=== PATIENT | female | born 1940 | race Caucasian/White ===

== ENCOUNTER 2016-07-21 16:45 | Inpatient (IN) | payer OTHER ==
--- NOTE | 2016-07-21 17:15 | ED EKG INTERP ---
EKG Interpretation - EKG Time of EKG reading by physician:: 16:55 EKG Read and Signed by:: Carrington Fleming EKG Interpretation (*Must complete 3 of following elements*): Normal Rate: 89 Rhythm: normal sinus rhythm Comments: normal ECG Attestation - Scribe Verification/Attestation Scribe:: Ivory Donato Acting as Scribe for:: Carrington Fleming Scribe documention review:: This chart was documented by a scribe and accurately reflects the service the provider performed and the decisions made by the provider.
[2016-07-21] MEDS ORDERED: MORPHINE IV ONE (17:24)
--- NOTE | 2016-07-21 17:55 | PROVIDER DOCUMENTATION ---
HPI-Abdominal Pain/GI Problem - General Chief Complaint: Back Pain Stated Complaint: High BP Time Seen by Provider: 07/21/16 16:59 Source: patient, family Allergies/Adverse Reactions: Patient Allergies Allergy/AdvReac Type Severity Reaction Status Date / Time Iodine and Iodide Containing Allergy Intermediate RASH Verified 07/21/16 17:21 Produc ondansetron HCl * Allergy Intermediate RASH Verified 07/21/16 17:21 [From Zofran (as hydrochloride)] shellfish derived Allergy Intermediate RASH Verified 07/21/16 17:21 levofloxacin [From Levaquin] AdvReac Unknown Verified 07/21/16 17:21 Home Medications: Celecoxib [Celebrex] 200 mg PO DAILY 10/09/14 Levothyroxine [Synthroid] 100 mg PO DAILY 10/09/14 Loratadine [Claritin] 10 mg PO DAILY 10/09/14 RX: Acetaminophen 325 mg PO DAILY 10/09/14 RX: Hydrochlorothiazide 12.5 mg PO DAILY 10/09/14 RX: Lisinopril 10 mg PO DAILY 10/09/14 RX: Metformin [Glucophage] 500 mg PO DAILY 10/09/14 RX: Simvastatin 80 mg PO DAILY 10/09/14 Spironolactone [Aldactone] 25 mg PO DAILY 10/09/14 - History of Present Illness-ABD Nature of Presenting Problems: 75 year old obese female presents with c/o left lower back pain and right flank pain. pt reports she has not been feeling well for several days with URI s/s. pt reports she went to the [facility], stood up then walked around around developed severe low back pain and right flank pain. pt reports she was able to walk downstairs and call the ambulance. pt reports she has developed swelling to bilateral lower extremities over the last few days with weakness, fatigue. Review of Systems - Adult - REVIEW OF SYSTEMS - ADULT Constitutional: reports: see HPI, fatique. denies: chills, fever Eyes: reports: no symptoms reported. denies: discharge, blurred vision, double vision Ears, Nose, Mouth & Throat: reports: see HPI, other (nasal congestion). denies : ear discharge, ear pain, sinus problem, nose pain, loose teeth, throat pain, throat swelling Cardiovascular: reports: no symptoms reported. denies: chest pain, palpitations , syncope Respiratory: reports: no symptoms reported. denies: chronic cough, cough, shortness of breath, wheezing Gastrointestinal: reports: no symptoms reported. denies: abdominal pain, diarrhea, nausea, vomiting Genitourinary: reports: see HPI, flank pain (right). denies: dysuria, discharge , frequency, frequent UTI's, hematuria, hesitency, urgency Musculoskeletal: reports: no symptoms reported. denies: bone pain, joint pain, joint swelling, neck pain Integumentary: reports: no symptoms reported. denies: hives, itching, rash, skin thickening Neurological: reports: no symptoms reported. denies: ataxia, dizziness/vertigo , numbness, paresthesia, tremors Psychiatric: reports: no symptoms reported Endocrine: reports: no symptoms reported Hematologic/Lymphatic: reports: no symptoms reported Allergic/Immunologic: reports: no symptoms reported All Other Systems: Reviewed and Negative Past History - Adult - PAST MEDICAL HISTORY-ADULT Review of Records: reports: Old Records Reviewed, Nursing Assessment Review, Medications Reviewed, Social history reviewed & non-contributory. Major Childhood Illnesses: reports: denies history Cardiovascular: reports: HTN Respiratory: reports: denies history Gastrointestinal: reports: denies history Obstetrical/Gynecological: reports: denies history Genitourinary: reports: denies history Musculoskeletal: reports: arthritis Neurological: reports: denies history Psychiatric: reports: denies history Endocrine/Immune: reports: Diabetes, thyroid disorder Other Conditions: reports: denies history - PRIOR SURGERIES/PROCEDURES Surgical/Procedure History: reports: none - IMMUNIZATION STATUS Childhood Immunizations: See Nurse Assessment Flu Vaccine: See Nurse Assessment - FAMILY HISTORY Family History: reviewed, not pertinent - SOCIAL HISTORY Smoking: denies Substance Use: none/never Alcohol Use Frequency: never Physical Exam-General - PHYSICAL EXAM-ADULT Initial Vital Signs Reviewed: Yes - CONSTITUTIONAL General Appearance: appears well, alert, no apparent distress, obese. negative : mild distress, moderate distress, severe distress, lethargic, slow to respond , obtunded, combative - EYES Eyes: PERRL/EOMI, pink conjunctivae. negative: conjuctival exudate, pale conjunctivae, sclera injected, scleral icterus, subconjunctival hemorrhage - HEAD, EARS, NOSE, MOUTH & THROAT HENMT: normocephalic/atraumatic, moist mucous membranes, normal ENT inspection - NECK Neck: non-tender, full range of motion, supple, normal inspection. negative: limited range of motion, tender lateral, tender midline - RESPIRATORY Respiratory: chest non-tender, lungs clear, normal breath sounds, no pleuratic chest pain, no respiratory distress, no accessory muscle use. negative: respiratory distress, decreased breath sounds, accessory muscle use, crackles, rales, rhonchi, stridor, wheezing - CARDIOVASCULAR Cardiovascular: normal peripheral pulses, regular rate, rhythm, no gallop, no murmur. negative: no edema (+2 pitting edema to bilateral lower extremities from mid thigh to ankles.), bradycardia, tachycardia - GASTROINTESTINAL (ABDOMEN) Abdominal Exam: normal bowel sounds, non tender, soft. negative: distended, guarding, rigid, rebound, tenderness, McBurney's point tenderness, Landon's sign , obturator sign, psoas, Rovsing's sign - GENITOURINARY Female Genitalia/Pelvic Exam: deferred Rectal Exam: deferred Hemoccult Exam: deferred - LYMPHATIC Lymphatic: no adenopathy - MUSCULOSKELETAL Back Exam: normal inspection, no vertebral tenderness, CVA tenderness (right), decreased range of motion (left mid low back pain). negative: no CVA tenderness , ecchymosis, kyphosis, muscle spasm, swelling, vertebral tenderness Extremity: normal range of motion, non-tender, normal gait, normal inspection, normal capillary refill, pedal edema (bilateral lower extremities). negative: no pedal edema, no calf tenderness, deformity, erythema, inflammation Peripheral Pulses: radial (R): 3+, radial (L): 3+, dorsalis-pedis (R): 3+, dorsalis-pedis (L): 3+ - SKIN Integumentary: normal color, normal turgor, warm/dry. negative: erythema - NEUROLOGIC Neurologic: grossly normal, no motor/sensory deficits. negative: facial droop, focal weakness, motor weakness, sensory deficit - PSYCHIATRIC Psych/Mental Status: normal mood/affect, normal thought content, normal thought process, oriented x 3 Progress - PLAN OF CARE/RESULTS Progress/Plan/Lab Results: Laboratory Tests 07/21/16 07/21/16 07/21/16 17:50 17:50 17:50 WBC RBC Hgb Hct MCV MCH MCHC RDW Std Deviation Plt Count MPV Immature Gran % (Auto) Neut % (Auto) Lymph % (Auto) [place] % (Auto) Eos % (Auto) Baso % (Auto) Immature Gran # (Auto) Neut # Lymph # [place] # Eos # Baso # D-Dimer Sodium 142 Potassium 5.1 Chloride 106 Carbon Dioxide 24 L Anion Gap 12 BUN 44 H Creatinine 1.7 H Estimated GFR/1.73 m2 29 BUN/Creatinine Ratio 26 Glucose 117 H Calculated Osmolality 295 Calcium 8.6 L Magnesium 2.4 Total Bilirubin 0.43 AST 19 ALT 13 Alkaline Phosphatase 91 Creatine Kinase 126 Troponin T < 0.010 Rid-J-Qtuezgvmmhf Pept Total Protein 5.7 L Albumin 3.7 Globulin 2.0 Albumin/Globulin Ratio 1.9 Amylase 103 Lipase 71 H Urine Source Urine Color Urine Turbidity Urine pH Ur Specific [place] Urine Protein Ur Glucose (Stick) Ur Ketones (Stick) Urine Blood Urine Nitrite Urine Bilirubin Urobilinogen Dipstick Urine Leukocytes Urine WBC (Auto) Urine RBC (Auto) U Epithel Cells (Auto) Urine Bacteria (Auto) 07/21/16 07/21/16 07/21/16 17:50 17:50 17:50 WBC 9.15 RBC 3.43 L Hgb 10.4 L Hct 31.9 L MCV 93.0 MCH 30.3 MCHC 32.6 L RDW Std Deviation 12.5 Plt Count 152 MPV 9.9 Immature Gran % (Auto) 0.0 Neut % (Auto) 77.6 H Lymph % (Auto) 14.1 L [place] % (Auto) 6.3 Eos % (Auto) 1.7 Baso % (Auto) 0.3 Immature Gran # (Auto) 0.00 Neut # 7.09 H Lymph # 1.29 [place] # 0.58 Eos # 0.16 Baso # 0.03 D-Dimer Sodium Potassium Chloride Carbon Dioxide Anion Gap BUN Creatinine Estimated GFR/1.73 m2 BUN/Creatinine Ratio Glucose Calculated Osmolality Calcium Magnesium Total Bilirubin AST ALT Alkaline Phosphatase Creatine Kinase Troponin T Lvs-G-Hmdaahvumkx Pept 3853 H Total Protein Albumin Globulin Albumin/Globulin Ratio Amylase Lipase Urine Source CLEAN CATCH Urine Color STRAW Urine Turbidity HAZY Urine pH 7.0 Ur Specific [place] 1.016 Urine Protein 200 A Ur Glucose (Stick) NEGATIVE Ur Ketones (Stick) NEGATIVE Urine Blood LARGE A Urine Nitrite NEGATIVE Urine Bilirubin NEGATIVE Urobilinogen Dipstick NORMAL Urine Leukocytes NEGATIVE Urine WBC (Auto) <10 Urine RBC (Auto) TNTC A U Epithel Cells (Auto) <10 Urine Bacteria (Auto) NEGATIVE 07/21/16 17:50 WBC RBC Hgb Hct MCV MCH MCHC RDW Std Deviation Plt Count MPV Immature Gran % (Auto) Neut % (Auto) Lymph % (Auto) [place] % (Auto) Eos % (Auto) Baso % (Auto) Immature Gran # (Auto) Neut # Lymph # [place] # Eos # Baso # D-Dimer 1.22 H Sodium Potassium Chloride Carbon Dioxide Anion Gap BUN Creatinine Estimated GFR/1.73 m2 BUN/Creatinine Ratio Glucose Calculated Osmolality Calcium Magnesium Total Bilirubin AST ALT Alkaline Phosphatase Creatine Kinase Troponin T Fwd-C-Gtoxbplavjj Pept Total Protein Albumin Globulin Albumin/Globulin Ratio Amylase Lipase Urine Source Urine Color Urine Turbidity Urine pH Ur Specific [place] Urine Protein Ur Glucose (Stick) Ur Ketones (Stick) Urine Blood Urine Nitrite Urine Bilirubin Urobilinogen Dipstick Urine Leukocytes Urine WBC (Auto) Urine RBC (Auto) U Epithel Cells (Auto) Urine Bacteria (Auto) Orders Category Date Time Status Saline Loc DIRECTED Care 07/21/16 17:22 Active Take Temperature DIRECTED Care 07/21/16 17:59 Active NPO Diet 07/21/16 17:22 Active ANGIOGRAM/PULMONARY ARTERIES [CT] Stat Exams 07/21/16 19:12 Ordered FLAT/UPRIGHT ABD/1 VIEW CHEST [RAD] Stat Exams 07/21/16 17:25 Taken RENAL STONE SEARCH [CT] Stat Exams 07/21/16 17:24 Taken AMYLASE [CHEM] Stat Lab 07/21/16 17:50 Completed BNP [PRO B-NATRIURETIC PEPTIDE] Stat Lab 07/21/16 17:50 Completed CBC WITH ELECTRONIC DIFF [HEME] Stat Lab 07/21/16 17:50 Completed CK PROFILE [SP CHEM] Stat Lab 07/21/16 17:50 Completed COMPREHENSIVE METABOLIC PANEL [CHEM] Stat Lab 07/21/16 17:50 Completed D-DIMER [CHEM] Stat Lab 07/21/16 17:50 Completed INFLUENZA SCREEN A/B Stat Lab 07/21/16 17:52 Completed LIPASE [CHEM] Stat Lab 07/21/16 17:50 Completed MAGNESIUM [CHEM] Stat Lab 07/21/16 17:50 Completed TROPONIN T Stat Lab 07/21/16 17:50 Completed URINALYSIS W/POSS RFLX CULT [URINALYSIS] Stat Lab 07/21/16 17:50 Completed Hydralazine [Apresoline] Med 07/21/16 19:27 Discontinued 10 mg IV NOW ONE Morphine Med 07/21/16 17:58 Discontinued 2 mg .ROUTE .STK-MED ONE Morphine Med 07/21/16 17:24 Discontinued 2 mg IV NOW ONE Vital Signs - 24 hr 07/21/16 07/21/16 16:50 18:03 Temperature 98.6 F Pulse Rate 85 Respiratory 18 Rate Blood Pressure 144/81 O2 Sat by Pulse 98 Oximetry Received call from radiology, pt is allergic to IV dye and renal function is not compatible. - CT/MRI 1 CT Study: Renal Stone Impression: Abnormal (minimal pleural effusions, and pulmonary edema, pericardial effusion, gallstones, no renal stones or hydronephrosis. diverticulosis without diverticiltis, no obstruction, no free fluid or free air. per Dr. Cabral.) - CONSULTS/PCP/HOSPITALIST Notification #1 *Consult/PCP/Hospitalist*: Dr. Mantilla Time Discussed: 19:42 Consult Disposition: Will see in ED, Admit #2 Consult: Dr. العراقي/Michelle Esparza, hospitalist service at [facility] Time Discussed: 22:13 Consult Disposition: other (Pt requsting transfer to the [facility] where her primary care doctor admits. Hospiatlist service reports her primary care is out of the country and therefore cannot accept admission.) #3 Consult: Dr. Mantilla Time Discussed: 22:13 Consult Disposition: Will see in ED, Admit (notified of [facility] refusal, will see in the ED for admission.) Departure - Departure Time of Disposition Order: 19:42 DIAGNOSIS: Pulmonary edema Qualifiers: Chronicity: acute Qualified Code(s): J81.0 - Acute pulmonary edema Lower extremity edema Qualifiers: Laterality: bilateral Qualified Code(s): R60.0 - Localized edema Heart failure Qualifiers: Heart failure type: unspecified heart failure type Heart failure chronicity: acute Qualified Code(s): I50.9 - Heart failure, unspecified Disposition: ADMITTED INPATIENT 09 Certified Medical Emergency: Emergent Condition: Stable Referrals: Satnam Crespo MD [Primary Care Provider] - Attestation - Physician/ Mid-level Attestation Patient care was provided by Mid-level provider ([employer]/PA):: Yes Mid-level provider:: Bolivar Aquino Mid-level documentation review:: The Mid-level provider documentation, treatment plan and medical decision making was reviewed by the physician who agrees with all treatment and medical decision making by the MLP.
[2016-07-21] MEDS ORDERED: MORPHINE ONE (17:58)
[2016-07-21 18:00] LABS: MANUAL DIFF NEEDED? NO; URINE CULTURE NEEDED? NO; URINE MICRO REVIEW NEEDED? NO; URINE SOURCE CLEAN CATCH
[2016-07-21 18:07] LABS: BASO% 0.3 % (0.0-0.8); EOS# 0.16 X1000 (0.0-0.7); EOS% 1.7 % (0.0-10.0); HEMATOCRIT 31.9 % (37.0-47.0); HEMOGLOBIN 10.4 g/dL (12.0-16.0); LYMPH# 1.29 X1000 (1.2-3.4); LYMPH% 14.1 % (20.5-51.1); MCH 30.3 PG (27-31); MCHC 32.6 g/dL (33-37); MONO# 0.58 X1000 (0.11-0.59); MONO% 6.3 % (1.7-9.3); MPV 9.9 FL (7.4-10.4); NEUT% 77.6 % (42.2-75.2); PLT 152 X1000 (130-400); RBC 3.43 XMIL (4.2-5.4)
[2016-07-21 18:08] LABS: BILIRUBIN URINE NEGATIVE (NEGATIVE); BLOOD URINE LARGE (NEGATIVE); COLOR STRAW; GLUCOSE URINE NEGATIVE (NEGATIVE); LEUKOCYTES URINE NEGATIVE (NEGATIVE); NITRITE URINE NEGATIVE (NEGATIVE); PROTEIN URINE 200 mg/dL (NEGATIVE); SP GRAVITY URINE 1.016; TURBIDITY URINE HAZY (CLEAR); UR EPITHELIAL CELLS <10 /HPF (<10); URINE BACTERIA NEGATIVE /HPF; URINE RBC TNTC /HPF (<10); URINE WBC <10 /HPF (<10); UROBILINOGEN URINE NORMAL (NORMAL)
[2016-07-21 18:35] LABS: ALBUMIN 3.7 g/dL (3.5-5.0); CALCIUM 8.6 mg/dL (8.8-10.2); MAGNESIUM 2.4 mg/dL (1.5-2.7); POTASSIUM 5.1 mmol/L (3.5-5.1); TOTAL BILIRUBIN 0.43 mg/dL (0.20-1.00); TOTAL PROTEIN 5.7 g/dL (6.3-8.3)
[2016-07-21] MEDS ORDERED: APRESOLINE IV ONE (19:27)
[2016-07-21] MEDS ORDERED: PHENERGAN IV ONE (22:30)
[2016-07-21] MEDS ORDERED: SODIUM CHLORIDE 0.9% INJ ONE (22:30)
[2016-07-21] MEDS ORDERED: BUMEX IV ONE (23:04)
[2016-07-21] MEDS ORDERED: MORPHINE IV PRN (23:09)
[2016-07-22] MEDS: DUONEB (A & A) INH PRN ×4 (05:59→15:45)
[2016-07-22 07:25] LABS: MANUAL DIFF NEEDED? NO
[2016-07-22 07:28] LABS: BASO% 0.3 % (0.0-0.8); EOS# 0.03 X1000 (0.0-0.7); EOS% 0.3 % (0.0-10.0); HEMATOCRIT 30.6 % (37.0-47.0); HEMOGLOBIN 9.9 g/dL (12.0-16.0); IMM GRAN# 0.02 X1000 (0.0-0.04); IMM GRAN% 0.2 % (0.0-0.5); LYMPH# 1.94 X1000 (1.2-3.4); LYMPH% 21.1 % (20.5-51.1); MCH 30.1 PG (27-31); MCHC 32.4 g/dL (33-37); MONO# 0.62 X1000 (0.11-0.59); MONO% 6.7 % (1.7-9.3); MPV 10.2 FL (7.4-10.4); NEUT% 71.4 % (42.2-75.2); PLT 155 X1000 (130-400); RBC 3.29 XMIL (4.2-5.4)
[2016-07-22 07:53] LABS: CALCIUM 9.1 mg/dL (8.8-10.2); POTASSIUM 5.1 mmol/L (3.5-5.1)
--- NOTE | 2016-07-22 08:07 | Diag Imaging Result Document ---
PROCEDURE NAME: CHEST-PORTABLE - 07/22/2016 AP PORTABLE CHEST AT 0500 HOURS: FINDINGS: There is cardiomegaly. There has been no appreciable change in the chest considering differences in inspiration since 07/21/2016. IMPRESSION: Cardiomegaly. Poor inspiration.
[2016-07-22] MEDS ORDERED: TYLENOL PO SCH (09:00)
[2016-07-22] MEDS ORDERED: PRINIVIL PO SCH (09:00)
[2016-07-22] MEDS ORDERED: ALDACTONE PO SCH (09:00)
[2016-07-22] MEDS ORDERED: LOPRESSOR PO SCH (09:00)
[2016-07-22] MEDS ORDERED: HEPARIN SUBQ SCH (09:00)
--- NOTE | 2016-07-22 09:18 | HISTORY AND PHYSICAL ---
CHIEF COMPLAINT: Back pain. HISTORY OF PRESENT ILLNESS: A 75-year-old, white female with hypertension, diabetes type 2, hyperlipidemia, and osteoarthrosis that presented to the ER. Brought by her family secondary to complaints of left lower back pain and also right flank pain, upper respiratory symptoms with cough, shortness of breath. Apparently, this happened earlier today acutely. She got up and walked downstairs, and started having pain in the back. She also complains of worsening distal edema in the legs over the last few days, associated with weakness and fatigue. Denies similar episodes in the past. Evaluated in the ER. A CAT scan has shown pulmonary edema, pleural effusions, also abnormal pro-B type natriuretic peptide she was found to be in acute kidney injury with some hyperkalemia. Of note, she takes spironolactone at home. There were attempts to transfer patient to [place] as per her primary doctor works there. However, after this was rejected by [facility], she accepted to be admitted in this facility. She says she is feeling better already. Denies any fevers, any chills, and says she has no cough at this time. She says she takes very well care of herself and she is compliant with her medications. She has been doing well with her primary doctor that she works with for at least 5 years. REVIEW OF SYSTEMS: Denies fevers. No chills. No blurry vision. No double vision. No earache. No sinus pain. No throat pain. No mouth sores. Denies chest pain. Denies palpitations. Denies syncope. No chronic cough. No shortness of breath. No wheezing. Denies abdominal pain, diarrhea, nausea, or vomiting. Denies dysuria, discharge, frequency, hematuria, hesitancy, or urgency. Admits of back pain, flank pain. No bone pain. No joint pain. No joint swelling or neck pain. Denies hives, itching rash, or skin thickening. Denies ataxia, dizziness, vertigo, numbness, paresthesias, or tremors. Denies anxiety. Admits to diabetes type 2, she says controlled. Denies adenopathy, recent or recurrent infections. No reaction to anything recently. All other systems reviewed and negative. HOME MEDICATIONS: Celebrex 200 mg p.o. daily, Synthroid 100 mg p.o. daily, Claritin 10 mg p.o. daily, Tylenol 325 mg p.o. daily, hydrochlorothiazide 12.5 mg p.o. daily, lisinopril 10 mg p.o. daily, metformin 500 mg p.o. daily, simvastatin 80 mg p.o. daily, Aldactone 25 mg p.o. daily. ALLERGIES: Allergic to containing products, Zofran, shellfish, and Levaquin. PAST MEDICAL HISTORY: Hypertension, hyperlipidemia, diabetes type 2, hypothyroidism. PAST SURGICAL HISTORY: None. SOCIAL HISTORY: No alcohol, no tobacco, no drugs. Lives home with family. FAMILY HISTORY: Hypertension and diabetes. PHYSICAL EXAMINATION: GENERAL: Obese, elder, white female, in no distress. Seems overloaded. VITAL SIGNS: Temperature is 98.6 degrees, pulse 85, respiratory rate 18, blood pressure 144/81, saturating 98% on room air. HEENT: The head is atraumatic, normocephalic. Pupils are reactive to light. Nose and throat clear. NECK: Supple. No bruits, goiters, or JVD. CHEST: Nontender to palpation. LUNGS: Clear bilaterally with decreased breath sounds at bases. No rhonchi and no crackles. HEART: S1, S2 present. Regular rate and rhythm. No murmurs. No rubs. No gallops. ABDOMEN: Obese, soft, nontender, nondistended. EXTREMITIES: There is +1 to 2 distal edema. No calf tenderness. NEUROLOGIC: Awake, alert, oriented x3. Decreased sensation in feet and hands. PSYCHIATRIC: Anxious. DIAGNOSTIC DATA: CT that was actually a renal stone maldonado shows minimal pleural effusions and pulmonary edema with pericardial effusion, gallstones. No renal stones or hydronephrosis. Diverticulosis without diverticulitis. No obstruction. No free fluid or free air. LABS: White blood cell count 9.1 with a hemoglobin 10.4, hematocrit 31.9, platelets of 152,000. D-dimer 1.22. Sodium 142, potassium 5.1, chloride 106, carbon dioxide 24, anion gap 12, BUN 44, creatinine 1.7, glucose 117. Pro-B type natriuretic peptide 3853. Lipase 71. Urinalysis 200 protein and large blood, TNTC RBCs. APPRECIATION AND PLAN: 1. Acute pulmonary edema on admission. 2. Acute heart failure. Check echocardiogram to assess left ventricular function. 3. Back pain. 4. Diabetes mellitus type 2, controlled, with neuropathy. 5. Hypertension. 6. Hyperlipidemia. 7. Acute kidney injury with hyperkalemia. 8. Hypothyroidism. 9. Osteoarthrosis. DISCUSSION: Patient presented to ER with back pain. However, a CT abdomen in fact showed pleural effusions, pulmonary edema, and pericardial effusion. She in fact complains of some orthopnea and distal edema over the last 2 weeks, associated with fatigue. Doubt, however, there is direct relationship to her back pain, though will be considered and atypical chest pain or possibly associated with DDD, osteoarthrosis. In any case, patient will be admitted for further evaluation and treatment. She has requested gentle IV diuresis, we will accomodate this and provide her with IV Bumex x1. Strict ins and outs, daily weights. Check echocardiogram to assess left ventricular function. Consult to cardiology sand conditioner machine. Cycle cardiac enzymes. Continue with serial examinations. Telemetry. Heparin for DVT prophylaxis. Rest of plan of care as per clinical development.
[2016-07-22] MEDS: ZOCOR PO SCH (09:50)
[2016-07-22] MEDS: CLARITIN PO SCH (09:50)
[2016-07-22] MEDS: SYNTHROID PO SCH (09:50)
[2016-07-22] MEDS: HYDROCHLOROTHIAZIDE PO SCH (09:56)
--- NOTE | 2016-07-22 10:04 | EKG Report ---
Test Performed on : 07/21/2016 4:55:03 PM Test Reason : ED. Not ordered in [place] Blood Pressure : / mmHG Vent. Rate : 089 BPM Atrial Rate : 089 BPM P-R Int : 140 ms QRS Dur : 068 ms QT Int : 368 ms P-R-T Axes : 038 003 067 degrees QTc Int : 447 ms Normal sinus rhythm. Normal ECG When compared with ECG of 24-MAR-2016 05:22, T wave amplitude has decreased in Lateral leads Unconfirmed Result
--- NOTE | 2016-07-22 10:54 | Diag Imaging Result Document ---
PROCEDURE NAME: RENAL STONE SEARCH - 07/21/2016 CT UROGRAM WITHOUT CONTRAST: FINDINGS: There are bilateral pleural effusions. There is ill-defined opacity in the lung bases in the costophrenic angles particularly and particularly on the right which may be due to atelectasis or pneumonia. There is the suggestion of a pericardial effusion. The heart is really not included on this study however. There may be a punctate calcification in the right renal collecting system but no other stones are identified. There are densely calcified gallstones without evidence of pericholecystic fluid. There is a moderate amount of stool throughout the colon. There is diverticulosis in the distal descending and sigmoid colon without definite evidence of active diverticulitis. The urinary bladder is unremarkable in appearance. There is no evidence of acute bony disease. IMPRESSION: 1. The possibility of pneumonia or pulmonary edema cannot be excluded. 2. Small bilateral pleural effusions and probable pericardial effusion. 3. Gallstones. 4. Diverticulosis coli.
--- NOTE | 2016-07-22 10:58 | Diag Imaging Result Document ---
PROCEDURE NAME: FLAT/UPRIGHT ABD/1 VIEW CHEST - 07/21/2016 FLAT AND UPRIGHT ABDOMEN: FINDINGS: There is rotoscoliosis in the lumbar spine with convexity to the left. There is some stool and gas in the rectum. There is no evidence of bowel obstruction, organomegaly, or mass. IMPRESSION: Nonspecific abdomen. PA CHEST: FINDINGS: The heart size has enlarged since 03/24/2016 and there is interstitial edema bilaterally. IMPRESSION: Pulmonary edema and cardiomegaly.
[2016-07-22] MEDS: LOVENOX SUBQ SCH (12:06)
--- NOTE | 2016-07-22 13:17 | CONSULTATION ---
DATE OF CONSULTATION: 07/22/2016 INDICATION FOR THE CONSULTATION: Elevated BNP, possible pulmonary edema. HISTORY OF PRESENT ILLNESS: Ms. Reese is a 75-year-old white female with a history of hypertension, diabetes, hyperlipidemia. She presented to the ER for acute development of back pain occurring early Friday morning. She has not felt well over the last several days. Specifically she apparently got into some poison yue and has noted some difficulty with a rash. She noted a few days ago some mild lower extremity edema as well, and has been less active as she has stayed at home and propped her legs up due to this. She has not had this issue before, no orthopnea. Early Friday morning around 3 or 4 she got up to make herself something to eat and she had the acute development of severe back pain in the flank area. This is very tender to palpation. She has not had any nausea or vomiting. She describes the pain as a very colicky type pain. She has not had a history of kidney stones. She denies any gross hematuria. She came in for further evaluation. PAST MEDICAL HISTORY: 1. Significant for hypertension. 2. Hyperlipidemia. 3. Diabetes. 4. Hypothyroidism. SOCIAL HISTORY: She does not drink and she does not smoke. She lives at [facility]. FAMILY HISTORY: Significant for hypertension and diabetes. REVIEW OF SYSTEMS: A 10 system review of systems is negative except for those as mentioned in the HPI. PHYSICAL EXAMINATION: Patient is afebrile during this hospitalization. Heart rates have predominantly been in the 70s. Blood pressure most recently was 191/86 and she has been significantly elevated in the 170s to 200 systolic.General: She is in no acute distress. HEENT: Oropharynx is moist. Normal dentition. Eye examination is pink conjunctivae. White sclerae. Neck: Examination shows no obvious thyromegaly or thyroid tenderness. Cardiovascular: She sounds to be in a regular rate and rhythm with no obvious murmurs. She has no S3. Extremities: She has very trace bilateral lower extremity edema. She has no obvious palpable cords in the bilateral lower extremities. She has warm and well-perfused lower extremities. Neck: Her JVP is not elevated but is very difficult to see secondary to neck girth. Chest: Clear to auscultation bilaterally. She has no increased work of breathing. Abdomen: Soft, nontender, nondistended. She has no obvious organomegaly. She does have exquisite tenderness in the costovertebral angle on the left. Musculoskeletal: Normal symmetric muscle tone. No long bone tenderness to palpation. Neurological: Moving all extremities well. Cranial nerves 2-12 are intact without any sensation deficits. Psychiatric: Alert, oriented and pleasant. She has normal mood and affect. PERTINENT DATA: Her CT stone search demonstrated the possibility of pneumonia versus pulmonary edema. Very small bilateral pleural effusions. Possible pericardial effusion, gallstones. There was a possible punctate calcification in the right renal collecting system but no other obvious stones were identified. Her flat and upright abdomen suggests pulmonary edema with cardiomegaly. Nonspecific abdominal x-ray. Her chest x-ray suggested cardiomegaly with poor inspiration. Her EKG showed sinus rhythm, rate of 89 beats per minute. No signs of ischemic changes or evidence of an injury type pattern. White count was 9.1, hematocrit 30.6. Her platelet count is 155,000. Her D-dimer was 1.22, her sodium is 143, potassium 5.1. Her BUN is 41 with a creatinine of 1.8. Her proBNP yesterday was 3800 and today it is 10,900. Her urinalysis showed qdp-[id number]-oc-count red cells. Specific gravity 1.016. ASSESSMENT: 1. Elevated proBNP in a patient with possible pulmonary edema versus pneumonia. 2. Costovertebral angle tenderness with significant blood in the urine. PLAN: I agree with a V/Q scan as well as an echo. I am unclear as to the etiology of her significant elevation in her proBNP as a 7000 point jump in less than 12 hours is very unusual. We are waiting on the echo. We will wait on the V/Q scan. Certainly a pulmonary embolus needs to be on the differential considering her elevated D-dimer and her less mobility recently. I have stopped the Aldactone considering her borderline high potassium, as well as her elevated BUN and creatinine. I have stopped the metoprolol considering that she may be in heart failure and we are not sure if this is diastolic or systolic and she was not on a beta-demetrice at home. I have added in some hydralazine for blood pressure control. We will follow up on the echo.
--- NOTE | 2016-07-22 13:32 | Diag Imaging Result Document ---
PROCEDURE NAME: LUNG SCAN / VQ - 07/22/2016 VENTILATION-PERFUSION LUNG SCAN: FINDINGS: The patient received 32.6 mCi of technetium 99m DTPA aerosol for the ventilation portion and 5.9 mCi of technetium 99m MAA for the perfusion portion of the study. There is no evidence of ventilation-perfusion mismatch and no perfusion defects are present. IMPRESSION: Normal study.
[2016-07-22] MEDS: APRESOLINE PO SCH (14:55)
[2016-07-22] MEDS: HUMULIN R SUBQ SCH (15:57)
--- NOTE | 2016-07-22 16:03 | PROGRESS NOTE ---
DATE: 07/22/2016 SUBJECTIVE: The patient reports feeling fine, breathing fine, and making a lot of pee. OBJECTIVE: Vital Signs: Temperature 98.2, heart rate 76, respiratory rate 18, blood pressure 182/73, and O2 saturation 95% on 2 liters nasal cannula. General: On examination, this is a 75- year-old female lying in bed, in no acute distress. HEENT: Head is normocephalic, atraumatic. Anicteric sclerae. Pale conjunctivae. Mucous membranes moist. Neck: Supple. No JVD noted. No carotid bruits. No lymphadenopathy. No thyromegaly. Cardiovascular: S1 and S2 heard. No murmurs, gallops, or rubs. Regular rate and rhythm. Respiratory: Crackles noted in both bases. The patient is not using any accessory muscles or having work of breathing. Abdomen: Soft, nontender to palpation. Bowel sounds present. No organomegaly. Extremities: There is 2+ pitting edema to both lower extremities. Neurological: The patient is alert and oriented x3, able to move 4 extremities. Cranial nerves 2 through 12 grossly normal. LABORATORY DATA: White cell count 9.19, hemoglobin 9.9, hematocrit 30.6, platelets 155,000. Sodium 143, potassium 5.5, chloride 107, bicarbonate 23, BUN 41, creatinine 1.8. ASSESSMENT AND PLAN: 1. Acute pulmonary edema. 2. New-onset heart failure. 3. Diabetes mellitus type 2. 4. Hypertension. 5. Hyperlipidemia. 6. Acute kidney injury with hyperkalemia. 7. Hypothyroidism. 8. Osteoarthritis. This patient has been started on aggressive diuretic treatment. Dr. Dee has evaluated this patient, and he has agreed with diureses. They are going to do an ultrasound of the heart. The patient clinically is doing fine. For diabetes, we will continue with sliding scale insulin. For hypertension, the condition is not well controlled, so right now we are going to increase the doses of lisinopril to 20 daily, and we will see how this patient does. Further recommendations to follow according to the clinical situation of the patient.
--- NOTE | 2016-07-22 17:13 | ED EKG INTERP ---
EKG Interpretation - EKG Time of EKG reading by physician:: 17:02 EKG Read and Signed by:: Miya Duffy Jr EKG Interpretation (*Must complete 3 of following elements*): Normal Rate: 88 Rhythm: NSR [place]: normal QRS: normal [place] Interval: normal ST Wave: normal
[2016-07-22] MEDS: TYLENOL PO PRN (19:55)
[2016-07-23] MEDS: HUMULIN R SUBQ SCH ×5 (04:55→21:15)
[2016-07-23] MEDS: PRINIVIL PO SCH ×2 (04:57→09:15)
[2016-07-23] MEDS: APRESOLINE PO SCH ×4 (04:58→21:16)
--- NOTE | 2016-07-23 06:05 | EKG Report ---
Test Performed on : 07/22/2016 6:58:03 PM Test Reason : done in ED/No order in [facility] Blood Pressure : / mmHG Vent. Rate : 089 BPM Atrial Rate : 089 BPM P-R Int : 176 ms QRS Dur : 078 ms QT Int : 370 ms P-R-T Axes : 057 002 064 degrees QTc Int : 450 ms Normal sinus rhythm. Normal ECG When compared with ECG of 22-JUL-2016 17:02, (Unconfirmed) No significant change was found Unconfirmed Result
[2016-07-23] MEDS: TYLENOL PO PRN ×2 (06:58→21:27)
[2016-07-23] MEDS: ZOCOR PO SCH (09:14)
[2016-07-23] MEDS: SYNTHROID PO SCH (09:15)
[2016-07-23] MEDS: CLARITIN PO SCH (09:15)
[2016-07-23] MEDS: HYDROCHLOROTHIAZIDE PO SCH ×2 (09:15→17:33)
[2016-07-23 09:27] LABS: HEMOGLOBIN A1C 5.8 % (4.8-6.0)
[2016-07-23] MEDS: LOVENOX SUBQ SCH (10:30)
[2016-07-23] MEDS ORDERED: LASIX IV ONE (15:04)
--- NOTE | 2016-07-23 15:28 | PROGRESS NOTE ---
DATE: 07/23/2016 SUBJECTIVE: Mr. Reese reports she is doing somewhat better today. She continues to have some lower extremity edema. PHYSICAL EXAMINATION: Vital Signs: Afebrile. Heart rate 83, blood pressure 170/63. Intake and output: Her I's and O's are somewhat inaccurate. She has 3 continent voids not measured today. General: No acute distress. Cardiovascular: Regular rate and rhythm. She has no obvious murmurs. She has 1+ bilateral lower extremity edema and warm well perfused lower extremities. Chest: Clear bilaterally. No increased work of breathing. Abdomen: Soft, nontender, nondistended. She has no obvious organomegaly. PERTINENT DATA: She has no recent chemistry data other than an A1c today at 5.8. ASSESSMENT: 1. Diastolic failure. 2. Small pericardial effusion. PLAN: Her echocardiogram is somewhat difficult to interpret. There is a small pericardial effusion seen but no clear evidence of tamponade physiology. At this point, I would likely plan on following up on that with an ultrasound as an outpatient. I will give her 40 mg of IV Lasix now and 40 mg in the morning. We will check a chemistry. She continues to be volume overloaded. She continues to be quite hypertensive as well. I will increase her hydralazine to 50 t.i.d.
--- NOTE | 2016-07-23 16:43 | PROGRESS NOTE ---
DATE: 07/23/2016 SUBJECTIVE: Patient reports feeling fine. Less shortness of breath. OBJECTIVE: Vital Signs: Temperature 97.6 degrees, heart rate 83, respiratory rate 16, blood pressure 117/63, O2 saturation 96% on room air. General Examination: This is a 75-year-old female lying in bed, in no acute distress. HEENT: Head is normocephalic, atraumatic. Anicteric sclerae. Pale conjunctivae. Mucous membranes moist. Neck: Supple. No JVD noted. No carotid bruits. No lymphadenopathy. No thyromegaly. Cardiovascular: S1, S2 heard. No murmurs, gallops, or rubs. Regular rate and rhythm. Respiratory: Clear bilaterally to auscultation. No work of breathing or using accessory muscles. There are a few, tiny crackles in both bases. Definitely much better in comparing with admission. Abdomen: Soft. Nontender to palpation. Bowel sounds present. No organomegaly. Extremities: No clubbing, cyanosis, or edema. Peripheral pulses present in both legs. Neurological: Patient is alert and oriented x3. Able to move 4 extremities. LABORATORY DATA: There are no labs from today. ASSESSMENT AND PLAN: 1. Acute pulmonary edema. 2. New onset heart failure. 3. Diabetes mellitus type 2. 4. Hypertension. 5. Hyperlipidemia. 6. Acute kidney injury. 7. Osteoporosis. 8. Pleural effusion. PLAN: This patient was admitted to the hospital for shortness of breath. Initially we suspected pulmonary embolism but that was ruled out by V/Q scan. He was evaluated by cardiology and echo showed only a small pericardial effusion and diastolic failure. The patient has been started today on Lasix 40 mg IV daily and she was continued with 40 in the morning. Renal function at this point is not good and apparently this is an acute kidney injury because, as per family in the office they were checking his renal function over a year and that was normal. In any case, we will continue with Lasix and if this patient is feeling better tomorrow, we will let her go. Regarding uncontrolled hypertension, will continue with lisinopril 20 and will add amlodipine 5 mg p.o. daily. We will see how this patient does tomorrow.
--- NOTE | 2016-07-23 17:29 | ECHO REPORT ---
ORDER DATE: 07/22/2016 INDICATION: Congestive heart failure. FINDINGS: 1. Right atrium is normal in size. 2. There is mild tricuspid regurgitation. RV systolic pressure of 38. 3. Normal RV size and systolic function. 4. Mild pulmonic insufficiency. 5. Mild left atrial enlargement at 4.7 cm. 6. No mitral valve prolapse. Mild mitral regurgitation. 7. Normal LV size, end-diastolic dimension of 5.6. Mild left ventricular hypertrophy with a posterior and interventricular septal wall thickness 1.3 cm each. Normal LV systolic function. Calculated EF of 58%. 8. The aortic valve opens well. No evidence of stenosis or insufficiency. 9. The aorta appears normal in visualized segments. 10. There does appear to be a pericardial effusion. It does appear to be circumferential. Maximum dimension is around 1.1 cm. I do not see any evidence of diastolic right ventricular collapse. Respironics phasic changes were not checked for. I do not see any clear evidence of tamponade physiology. The patient's blood pressure is noted to be 191 systolic.
[2016-07-23] MEDS: NORVASC PO SCH (17:33)
[2016-07-24 05:11] VITALS: BP 146/78
[2016-07-24] MEDS: HUMULIN R SUBQ SCH (06:34)
[2016-07-24 06:46] LABS: CALCIUM 9.1 mg/dL (8.8-10.2); POTASSIUM 4.4 mmol/L (3.5-5.1)
[2016-07-24] MEDS ORDERED: LASIX IV SCH (09:00)
[2016-07-24] MEDS: ZOCOR PO SCH (09:07)
[2016-07-24] MEDS: SYNTHROID PO SCH (09:08)
[2016-07-24] MEDS: PRINIVIL PO SCH (09:08)
[2016-07-24] MEDS: APRESOLINE PO SCH (09:08)
[2016-07-24] MEDS: CLARITIN PO SCH (09:08)
[2016-07-24] MEDS: HYDROCHLOROTHIAZIDE PO SCH (09:09)
[2016-07-24] MEDS: NORVASC PO SCH (09:09)
--- NOTE | 2016-07-24 11:56 | DISCHARGE SUMMARY ---
ADMISSION DATE: 07/21/2016 DISCHARGE DATE: 07/24/2016 CONSULTATIONS: Dr. Roger Dee with cardiology. PERTINENT PROCEDURES: 1. Renal CT shows a possibility of pneumonia or pulmonary edema cannot be excluded. Small bilateral pleural effusions and probable pericardial effusion, gallstones, diverticulosis. 2. Abdominal x-ray showed pulmonary edema and cardiomegaly. 3. V/Q scan was normal. 4. Echocardiogram showed an EF of 58% with a pericardial effusion that appeared to be circumferential. DISCHARGE DIAGNOSES: 1. Acute pulmonary edema. 2. Congestive diastolic heart failure. 3. Diabetes mellitus type 2. 4. Hypertension. 5. Hyperlipidemia. 6. Acute kidney injury. 7. Osteoporosis. 8. Pleural effusion. HOSPITAL COURSE: Mr. Reese is a 75-year-old female with history of hypertension, diabetes mellitus type 2, hyperlipidemia and osteoarthritis. The patient was brought in to the ED by her family secondary to complaints of left lower back pain and also right flank pain. Upper respiratory symptoms with a cough and shortness of breath. Apparently this came on acutely. She got up and walked down stairs and started having pain in the back. She also complains of worsening distal edema in the legs over the last few days associated with weakness and fatigue. She has had similar episodes in the past. CT scan did show pulmonary edema, pleural effusions, also abnormal proBNP. She also had an acute kidney injury with hyperkalemia. Patient did take at home. The patient initially wanted to be transferred to [place] where her doctors were however this was rejected. Patient was admitted to our facility. She was gently diuresed with strict I's and O's. Cardiology was consulted. Patient was ruled out for [place] with cardiac enzymes. The patient's echocardiogram did show an EF of 58% and a pericardial effusion that appeared to be circumferential. She also underwent a V/Q scan that was normal. The patient's Aldactone was also stopped. She was started on metoprolol. Hydralazine was added for blood pressure control. Her diuresis was changed from Bumex to IV Lasix and her hydralazine was increased to t.i.d. at [address] Shaw continued with patient's lisinopril and added Norvasc. Patient was continued on IV Lasix. She reports to feeling fine less short of breath. The patient does do continue to have some lower extremity edema. Dr. Shaw has assessed the patient. He feels that she is appropriate for discharge today. VITAL SIGNS AT THE TIME OF DISCHARGE: Temperature is 98 degrees, heart rate 84 , respirations are 20, blood pressure is 146/78, O2 is 95% on room air. DISCHARGE DIET: Healthy heart. DISCHARGE MEDICATIONS: 1. Claritin 10 mg p.o. daily. 2. Glucophage 500 mg p.o. daily. 3. Simvastatin 80 mg p.o. daily. 4. Synthroid 100 mcg p.o. daily. 5. Lasix 40 mg p.o. daily. 6. Norvasc 10 mg p.o. at bedtime. 7. Prinivil 20 mg p.o. daily. DISPOSITION: Patient is being discharged home with family. FOLLOWUP: She is to follow up with Dr. Roger Dee in 2-4 weeks for consideration of outpatient stress testing. She will follow up with her primary care physician, Dr. Satnam Crespo in 7-10 days. Patient will continue with her p.o. Lasix. She can return to the ED for any worsening of symptoms. TIME SPENT AT DISCHARGE: Thirty five minutes. Dictated by RAFA Baez for Jama Trammell MD MTDD
--- NOTE | 2016-07-24 12:23 | PROGRESS NOTE ---
DATE: 07/24/2016 SUBJECTIVE: Ms. Reese reports she is doing well. She had a significant amount of urine output last night. PHYSICAL EXAMINATION: She is afebrile. Her heart rates are in the 70s to 90s. Her blood pressure is 146/78. Her I's and O's are difficult to interpret. She had a 3 unmeasured voids yesterday and 2 unmeasured voids today already. She said she has had a significant amount urine intake. Her weights do not seem to be very accurate. Generally, in no acute distress. Cardiovascular: She sounds to be in a regular rate and rhythm. She has 1+ bilateral lower extremity edema with warm and well perfused lower extremities. Her chest exam is clear bilaterally. She has no increased work of breathing. Her abdomen is soft, nontender, nondistended. No obvious organomegaly. PERTINENT DATA: Her sodium is 140, potassium is 4.4. Her BUN is 43, creatinine 1.7. ASSESSMENT: 1. Diastolic heart failure. 2. Pericardial effusion. PLAN: She is being discharged on an outpatient diuretics. I will plan on seeing her in the office. We will likely follow up with an echocardiogram in roughly the next 4-6 weeks and consider outpatient stress testing as well considering her new onset diastolic heart failure. She was instructed on sodium restriction, fluid restriction, and daily weights which she is to bring to our office appointment as well as her primary care physician's office appointment.
== END 2016-07-24 12:23 | disposition home or self-care (01) | DRG 292 ==
LOC: EDBD → ED 16:45 → EDIPHOLD 23:15 → 3N 07-22 18:36
PROVIDERS: ATTEND Internal Medicine
DX: I11.0 Hypertensive heart disease with heart failure (principal); N17.9 Acute kidney failure, unspecified; I31.3 Pericardial effusion (noninflammatory); E11.40 Type 2 diabetes mellitus with diabetic neuropathy, unspecified; E87.5 Hyperkalemia; I50.31 Acute diastolic (congestive) heart failure; I10 Essential (primary) hypertension; M19.90 Unspecified osteoarthritis, unspecified site; Z79.1 Long term (current) use of non-steroidal anti-inflammatories (NSAID); Z79.899 Other long term (current) drug therapy; Z79.84 Long term (current) use of oral hypoglycemic drugs; E66.9 Obesity, unspecified; E78.5 Hyperlipidemia, unspecified; E03.9 Hypothyroidism, unspecified; Z82.49 Family history of ischemic heart disease and other diseases of the circulatory system; Z83.3 Family history of diabetes mellitus; K57.90 Diverticulosis of intestine, part unspecified, without perforation or abscess without bleeding
CPT/HCPCS: 71010; 74022; 74176; 78582; 80048; 80053; 81001; 82150; 82550; 82948; 83036; 83690; 83735; 83880; 84484; 85025; 85379; 87804; 93005; 93306; 94640; 94761; 96374; 96375; 96376; A9539; A9540; J0360; J1644; J1650; J1940; J2270; J2550; S0171

== ENCOUNTER 2016-12-09 18:26 | Inpatient (IN) ==
[2016-12-09 19:38] LABS: MANUAL DIFF NEEDED? NO
[2016-12-09 19:41] LABS: BASO% 0.1 % (0.0-0.8); HEMATOCRIT 32.1 % (37.0-47.0); HEMOGLOBIN 10.4 g/dL (12.0-16.0); LYMPH# 1.02 X1000 (1.2-3.4); LYMPH% 12.8 % (20.5-51.1); MCH 29.4 PG (27-31); MCHC 32.4 g/dL (33-37); MCV 90.7 FL (81-99); MONO# 0.53 X1000 (0.11-0.59); MONO% 6.7 % (1.7-9.3); MPV 9.2 FL (7.4-10.4); NEUT% 80.4 % (42.2-75.2); PLT 235 X1000 (130-400); RBC 3.54 XMIL (4.2-5.4)
[2016-12-09 20:05] LABS: URINE MICRO REVIEW NEEDED? NO; URINE SOURCE CLEAN CATCH
[2016-12-09 20:10] LABS: ALBUMIN 2.7 g/dL (3.5-5.0); CALCIUM 7.9 mg/dL (8.8-10.2); TOTAL BILIRUBIN 0.23 mg/dL (0.20-1.00); TOTAL PROTEIN 5.1 g/dL (6.3-8.3)
[2016-12-09 20:11] LABS: POTASSIUM 6.8 mmol/L (3.5-5.1)
[2016-12-09 20:11] LABS: BILIRUBIN URINE NEGATIVE (NEGATIVE); BLOOD URINE LARGE (NEGATIVE); COLOR ORANGE; GLUCOSE URINE NEGATIVE (NEGATIVE); LEUKOCYTES URINE LARGE (NEGATIVE); NITRITE URINE NEGATIVE (NEGATIVE); PH URINE 5.5; PROTEIN URINE 100 mg/dL (NEGATIVE); SP GRAVITY URINE 1.013; TURBIDITY URINE TURBID (CLEAR); UROBILINOGEN URINE 2 mg/dL (NORMAL)
[2016-12-09 20:12] LABS: UR EPITHELIAL CELLS <10 /HPF (<10); URINE BACTERIA 4+ /HPF; URINE CULTURE NEEDED? YES; URINE WBC TNTC /HPF (<10)
[2016-12-09] MEDS ORDERED: DUONEB (A & A) INH ONE (20:28)
[2016-12-09] MEDS ORDERED: D50W SYRINGE IV ONE (20:29)
[2016-12-09] MEDS ORDERED: HUMULIN R IV ONE (20:30)
[2016-12-09] MEDS ORDERED: SODIUM BICARBONATE 8.4% IV PUSH ONE (20:31)
[2016-12-09] MEDS ORDERED: ALBUTEROL 0.5% INH CONC FOR HYPERKALEMIA ONE ×2 (20:37)
[2016-12-09] MEDS ORDERED: ROCEPHIN 1 GM/NS 1 GM/50 ML IVPB IV ONE (20:58)
--- NOTE | 2016-12-09 21:17 | PROVIDER DOCUMENTATION ---
This chart was entered by Ibeth Simmons Scribe, acting as scribe for Guicho Flores MD. HPI-Abdominal Pain/GI Problem - General Chief Complaint: Abdominal Pain Stated Complaint: Abdominal Pain N/V Time Seen by Provider: 12/09/16 19:55 Source: patient Allergies/Adverse Reactions: Patient Allergies Allergy/AdvReac Type Severity Reaction Status Date / Time Iodine and Iodide Containing Allergy Intermediate ANAPHYLAXIS Verified 12/09/16 18:46 Produc ondansetron HCl * Allergy Intermediate RASH Verified 12/09/16 18:46 [From Zofran (as hydrochloride)] shellfish derived Allergy Intermediate RASH Verified 12/09/16 18:46 levofloxacin [From Levaquin] AdvReac Unknown Verified 12/09/16 18:46 Home Medications: Home Medication List Medication Instructions Recorded Confirmed Last Taken Type Levothyroxine [Synthroid] 100 mg PO DAILY 10/09/14 12/09/16 07/20/16 History Amlodipine Besylate [Norvasc] 5 mg PO DAILY 12/09/16 12/09/16 Unknown History Famotidine 20 mg PO DAILY 12/09/16 12/09/16 Unknown History - History of Present Illness-ABD Nature of Presenting Problems: 76 Y/O F presents to ED with ABD pain. Pt states that she recently had her gallbladder removed in the 15 of November and stated two weeks after surgery she began to have ABD pain. States noted blood fluid and requested for a CT to be preformed. Ct test was done by Dr. Napier in [facility]. States hasn't been able to keep food done. Vomiting, hx of type 2 diabetes. Has a colonscopy scheduled with Dr. Tavares. States distended stomach when pain occurs. Sour-like bile when Vomiting. Abdominal Pain Onset Location: reports: LLQ Pain Radiation: reports: no radiation Quality of Pain: reports: aching Severity in ED: reports: moderate Onset/Duration: reports: this evening Timing: reports: still present, changing over time, getting worse Associated Symptoms: reports: diarrhea, vomiting. denies: fever/chills, weakness Review of Systems - Adult - REVIEW OF SYSTEMS - ADULT Constitutional: denies: chills, fever Eyes: reports: no symptoms reported Ears, Nose, Mouth & Throat: reports: no symptoms reported Cardiovascular: denies: chest pain Respiratory: reports: no symptoms reported Gastrointestinal: reports: abdominal pain, diarrhea, vomiting. denies: nausea Genitourinary: reports: no symptoms reported Musculoskeletal: reports: no symptoms reported Integumentary: reports: no symptoms reported Neurological: reports: no symptoms reported Psychiatric: reports: no symptoms reported Endocrine: reports: no symptoms reported Hematologic/Lymphatic: reports: no symptoms reported Allergic/Immunologic: reports: no symptoms reported All Other Systems: Reviewed and Negative Past History - Adult - PAST MEDICAL HISTORY-ADULT Review of Records: reports: Old Records Reviewed, Nursing Assessment Review, Medications Reviewed, Social history reviewed & non-contributory. Major Childhood Illnesses: reports: denies history Cardiovascular: reports: HTN Respiratory: reports: denies history Gastrointestinal: reports: denies history Obstetrical/Gynecological: reports: denies history Genitourinary: reports: denies history Musculoskeletal: reports: arthritis Neurological: reports: denies history Psychiatric: reports: denies history Endocrine/Immune: reports: Diabetes, thyroid disorder Other Conditions: reports: denies history - PRIOR SURGERIES/PROCEDURES Surgical/Procedure History: reports: none - IMMUNIZATION STATUS Childhood Immunizations: See Nurse Assessment Flu Vaccine: See Nurse Assessment - FAMILY HISTORY Family History: reviewed, not pertinent Physical Exam-General - PHYSICAL EXAM-ADULT Initial Vital Signs Reviewed: Yes - CONSTITUTIONAL General Appearance: alert, no apparent distress - EYES Eyes: PERRL/EOMI, pink conjunctivae - HEAD, EARS, NOSE, MOUTH & THROAT HENMT: normocephalic/atraumatic, moist mucous membranes, normal ENT inspection - NECK Neck: supple, normal inspection - RESPIRATORY Respiratory: chest non-tender, lungs clear, normal breath sounds - CARDIOVASCULAR Cardiovascular: normal peripheral pulses, regular rate, rhythm, no edema - GASTROINTESTINAL (ABDOMEN) Abdominal Exam: normal bowel sounds, soft, tenderness (mildly LLQ) - LYMPHATIC Lymphatic: no adenopathy - MUSCULOSKELETAL Back Exam: normal inspection, no CVA tenderness, no vertebral tenderness Extremity: normal range of motion, non-tender - SKIN Integumentary: normal color, normal turgor, warm/dry - NEUROLOGIC Neurologic: grossly normal, no motor/sensory deficits - PSYCHIATRIC Psych/Mental Status: normal mood/affect, normal thought content, normal thought process, oriented x 3 Progress - PLAN OF CARE/RESULTS Progress/Plan/Lab Results: Vital Signs - 8 hr 12/09/16 18:42 12/09/16 20:19 Temperature 97.9 F Pulse Rate 84 72 Respiratory Rate 18 15 Blood Pressure 153/55 127/62 O2 Sat by Pulse Oximetry 100 100 Laboratory Results - last 24 hr 12/09/16 12/09/16 12/09/16 19:25 19:25 19:55 WBC 7.95 RBC 3.54 L Hgb 10.4 L Hct 32.1 L MCV 90.7 MCH 29.4 MCHC 32.4 L RDW Std Deviation 14.1 Plt Count 235 MPV 9.2 Immature Gran % (Auto) 0.0 Neut % (Auto) 80.4 H Lymph % (Auto) 12.8 L [place] % (Auto) 6.7 Eos % (Auto) 0.0 Baso % (Auto) 0.1 Immature Gran # (Auto) 0.00 Neut # (Auto) 6.39 Lymph # (Auto) 1.02 L [place] # (Auto) 0.53 Eos # (Auto) 0.00 Baso # (Auto) 0.01 Sodium 137 Potassium 6.8 H* Chloride 109 H Carbon Dioxide 17 L Anion Gap 11 BUN 61 H Creatinine 1.8 H Estimated GFR/1.73 m2 27 BUN/Creatinine Ratio 34 Glucose 100 Calculated Osmolality 291 Calcium 7.9 L Total Bilirubin 0.23 AST 31 H ALT 20 Alkaline Phosphatase 132 H Total Protein 5.1 L Albumin 2.7 L Globulin 2.4 Albumin/Globulin Ratio 1.1 Amylase 44 Lipase 35 Urine Source CLEAN CATCH Urine Color ORANGE Urine Turbidity TURBID Urine pH 5.5 Ur Specific [place] 1.013 Urine Protein 100 A Ur Glucose (Stick) NEGATIVE Ur Ketones (Stick) NEGATIVE Urine Blood LARGE A Urine Nitrite NEGATIVE Urine Bilirubin NEGATIVE Urobilinogen Dipstick 2 A Urine Leukocytes LARGE A Urine WBC (Auto) TNTC A Urine RBC (Auto) 10-20 A U Epithel Cells (Auto) <10 Urine Bacteria (Auto) 4+ Orders Category Date Time Status Saline Loc DIRECTED Care 12/09/16 19:29 Active NPO Diet 12/09/16 19:29 Active AMYLASE [CHEM] Stat Lab 12/09/16 19:25 Completed CBC WITH ELECTRONIC DIFF [HEME] Stat Lab 12/09/16 19:25 Completed COMPREHENSIVE METABOLIC PANEL [CHEM] Stat Lab 12/09/16 19:25 Completed LIPASE [CHEM] Stat Lab 12/09/16 19:25 Completed URINALYSIS W/POSS RFLX CULT-1 [URINALYSIS] Stat Lab 12/09/16 19:55 Completed URINE CULTURE [RM] Routine Lab 12/09/16 20:13 Received Result Diagrams: 12/09/16 19:25 12/09/16 19:25 - REASSESSMENT Reassessment #1 Time Reassessed: 21:14 Status: unchanged (Lab just returned and K+ found to be 6.8 - probably in part Type IV RTA. U/A consistent with UTI) - CONSULTS/PCP/HOSPITALIST Notification #1 *Consult/PCP/Hospitalist*: Time Discussed: 21:01 Reason/Comments: Admit Consult Disposition: Admit (Admit Accepted) Departure - Departure Time of Disposition Decision: 21:16 DIAGNOSIS: Hyperkalemia Disposition: ADMITTED INPATIENT 09 Certified Medical Emergency: Emergent Condition: Fair - Critical Care Note This patient required my direct & personal management of CC.: No This chart was documented by the indicated scribe, (Ibeth Simmons Scribe) and accurately reflects the services I performed and decisions made by me, Guicho Flores MD, as attested by the provider's signature.
[2016-12-09] MEDS ORDERED: NS 500 ML IV ONE (21:21)
[2016-12-09] MEDS ORDERED: CALCIUM GLUCONATE IV PUSH ONE (21:32)
[2016-12-09 22:40] LABS: RETIC% 0.44 % (0.8-2.1); RETIC-HE 35.1 PG (28.2-36.6)
--- NOTE | 2016-12-09 22:56 | HISTORY AND PHYSICAL ---
PRIMARY CARE PHYSICIAN: Satnam Crespo MD REASON FOR ADMISSION: Three week history of protracted nausea, vomiting and weight loss. HISTORY OF PRESENT ILLNESS: Ms. Flores Reese is a 26-year-old lady with past medical history of hyperlipidemia, type 2 diabetes, hypertension, questionable history of diastolic heart failure. She underwent a laparoscopic cholecystectomy performed by Dr. Roger Napier 11/15/2016 and she reports that since then she has been having intermittent lower abdominal cramping, but more so almost constant nausea with postprandial vomiting. Emesis is nonbloody and sometimes bilious in nature. She has been having loose-like stools, but these occur postprandially and there is no blood reported or melena. She says the abdominal pain is spontaneous, crampy starts in the lower half of the abdomen and later spreads all over. She reports firm over the last few days having some low-grade fever and intermittent chills. She has seen Dr. Napier since the surgery and he did a CAT scan 10 days ago and abdominal sonogram and could not find any acute pathology. He since referred her to Dr. Tavares for further endoscopic evaluation in 2 days' time. The patient denies any dysuria or urinary frequency, flank pain, hematuria. She reported urine output has not declined. She denies any muscular cramps otherwise. She reports she has lost weight. Her weight has dropped from 208 in July to 176 because of her poor appetite from the nausea. She denies any cardiorespiratory complaints. When she was discharged in July she was put on Lasix and other medications for presumed diastolic heart failure, but her creatinine went up to 2.8 and her primary doctor has since stopped this a few months ago. She reports no PND, orthopnea or leg swelling. REVIEW OF SYSTEMS: 14 systems negative. Positive findings per HPI. Patient does admit to feeling thirsty for the last few days. ALLERGIES: Iodine-containing products, Zofran, shellfish and Levaquin. SURGICAL HISTORY: She has had a laparoscopic cholecystectomy, hysterectomy and tonsillectomy. SOCIAL HISTORY: No smoking. Does not smoke, drink, or use drugs. Lives alone in an elder facility. FAMILY HISTORY: Notable for hypertension, diabetes, heart disease. HOME MEDICATIONS: Norvasc 5 mg daily, Synthroid 100 mcg daily and famotidine 20 mg daily. LABORATORY WORK: Urinalysis shows too numerous to count white cells, 4+ bacteria. Nitrate positive. Potassium 6.8, bicarb is 17, anion gap is 11. BUN is 61, creatinine 1.8, calcium 7.9, AST 31, ALT 23, total bilirubin is normal. Alkaline phosphatase 132, amylase and lipase normal. White count 7000, hemoglobin and hematocrit 10 and 32. Platelets 235,000. EKG is pending as of this time. PHYSICAL EXAMINATION: VITAL SIGNS: Blood pressure is 127/62, heart rate is 88. Respirations 15, temperature is 97.9. GENERAL: She is an elderly woman who is in mild distress from her nausea and intermittent cramping abdominal pain. She is alert and oriented to person, place and time with normal mood and affect. HEENT: Head is normocephalic, atraumatic. Eyes, [place], EOMI. Sclerae intact, not pale. ENT and oropharyngeal exam does show she has dry oral mucosa, but no oropharyngeal exudates or erythema. There is some cyanosis. NECK: Supple. No JVD or carotid bruit. No thyromegaly. She has slightly decreased skin turgor. CHEST: Clear to auscultation. Good air entry both lung [place]. CARDIOVASCULAR: First and second heart sounds heard. No gallops, murmurs, rubs. Rhythm is regular. ABDOMEN: Slightly protuberant, soft, with tenderness exclusively confined to the left lower quadrant, left upper quadrant epigastrium. Bowel sounds are hypoactive. Patient has no CVA tenderness. RECTAL: Deferred at this time. EXTREMITIES: Trace edema of both lower extremities. Pulses distally are intact with good volume and are symmetrical. NEUROLOGICAL: No focal deficits. SKIN: Intact. No breakdown lesions or erythema. MUSCULOSKELETAL: Exam is grossly normal. ASSESSMENT: 1. Dehydration secondary to protracted vomiting. 2. 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 3. Urinary tract infection. 4. Type 2 diabetes complicated with possible type 2 RTA. 5. Chronic kidney disease, stage 4. 6. Hypertension. 7. Questionable chronic diastolic heart failure. 8. Intermittent abdominal pain? Probable left descending colitis. 9. Anemia of chronic inflammation versus kidney disease. PLAN: 1. At this time we will cautiously hydrate patient in light of her underlying chronic diastolic heart failure. We will check basic metabolic panel in 2 hours since patient has received megadose of albuterol, calcium gluconate, bicarbonate, insulin and D50. If it is still elevated we will correct this. We will order an oral CT scan to rule out colitis or some other intra-abdominal process causing her chronic nausea and vomiting. It could also be related to gastroparesis. Dr. Tavares will be notified for further input regarding her gastrointestinal complaints. 2. Etiology of her hyperkalemia. I still think it could be a lab error versus a true type 4 RTA as evidenced by patient having a low bicarbonate with no anion gap. Check patient's TSH and we are also going to consider consulting Nephrology. It is also possible that her nausea could be related to underlying mild uremia and this needs to be evaluated also. 3. Deep venous thrombosis prophylaxis will be given in the form of heparin due to her renal dysfunction. cc: MD Roger Egan MD Akram Haggag, MD
[2016-12-10] MEDS ORDERED: ZOFRAN IV PRN (00:38)
[2016-12-10] MEDS ORDERED: D5 NS 1,000 ML IV ONE (00:38)
[2016-12-10] MEDS ORDERED: BENTYL IM PRN (00:38)
[2016-12-10] MEDS ORDERED: TYLENOL PO PRN (00:38)
[2016-12-10] MEDS: HEPARIN SUBQ SCH ×3 (01:06→21:53)
[2016-12-10 02:01] LABS: CALCIUM 8.3 mg/dL (8.8-10.2); POTASSIUM 4.9 mmol/L (3.5-5.1)
[2016-12-10 05:30] LABS: MANUAL DIFF NEEDED? NO
[2016-12-10 05:36] LABS: BASO% 0.2 % (0.0-0.8); HEMATOCRIT 25.7 % (37.0-47.0); HEMOGLOBIN 8.2 g/dL (12.0-16.0); LYMPH# 0.85 X1000 (1.2-3.4); LYMPH% 14.3 % (20.5-51.1); MCH 29.2 PG (27-31); MCHC 31.9 g/dL (33-37); MCV 91.5 FL (81-99); MONO# 0.36 X1000 (0.11-0.59); MPV 9.1 FL (7.4-10.4); NEUT% 79.5 % (42.2-75.2); PLT 204 X1000 (130-400); RBC 2.81 XMIL (4.2-5.4)
[2016-12-10 05:52] LABS: ALBUMIN 2.4 g/dL (3.5-5.0); CALCIUM 7.8 mg/dL (8.8-10.2); MAGNESIUM 2.3 mg/dL (1.5-2.7); POTASSIUM 5.2 mmol/L (3.5-5.1); TOTAL BILIRUBIN 0.14 mg/dL (0.20-1.00); TOTAL PROTEIN 4.8 g/dL (6.3-8.3)
[2016-12-10] MEDS: SYNTHROID PO SCH ×2 (05:53→07:34)
[2016-12-10] MEDS: HUMALOG SUBQ SCH ×5 (05:54→21:54)
--- NOTE | 2016-12-10 07:45 | Diag Imaging Result Doc PS360 ---
EXAM: CT ABD/PELVIS ORAL CONTR ONLY INDICATION: intractable vomiting abd pain Post op COMPARISON: 07/21/2016 FINDINGS: There is mild subsegmental atelectasis at the lung bases. There has been a previous cholecystectomy. There is small ascites tracking around the liver and layering in the pelvis. There is a tiny cyst density focus of the upper pole of the left kidney. There are no renal stones identified. There is no evidence of obstructive uropathy. There is a tiny umbilical hernia contains only fat. There is extensive sigmoid and descending colonic diverticulosis. There is no evidence of diverticulitis. There has been a previous hysterectomy. There is no evidence of bowel obstruction. There is no free abdominal gas or focal inflammatory changes appreciated. The remainder of the solid viscera of the abdomen and pelvis and the remainder of the GI tract is essentially unremarkable. IMPRESSION: 1.Small volume ascites. 2.Incidental/nonacute findings detailed above but, otherwise, no definite acute pathology. Electronically signed by Yony Santillan 12/10/2016 7:42 AM
[2016-12-10] MEDS: NORVASC PO SCH (09:45)
[2016-12-10] MEDS: PEPCID PO SCH (09:45)
--- NOTE | 2016-12-10 13:07 | PROGRESS NOTE ---
DATE: 12/10/2016 SUBJECTIVE: She is a patient of Dr. Satnam Crespo. Three-week history of protracted nausea, vomiting, weight loss, who came in yesterday. This is a 76-year-old white female with past medical history of hyperlipidemia, diabetes mellitus type 2, hypertension, questionable history of diastolic heart failure, who underwent laparoscopic cholecystectomy performed by Dr. Roger Napier on 11/16/2015. She reports that since that time she has been having intermittent lower abdominal cramping, but almost constant nausea with postprandial vomiting. Emesis is nonbloody and sometimes bilious in nature. She has been having loose stools, but these occur postprandially and there is no blood reported or melena. States that abdominal pain and spontaneous cramping starts lower half of the abdomen and later spreads all over. The last few days having some low-grade fever and chills. Sees Dr. Napier since the surgery. He did a CT scan about 10 days ago, abdominal sonogram, and could not find any acute pathology. Referred to Dr. Tavares for further endoscopic evaluation a couple days, but presented with worsening pain. Denies any dysuria or urinary frequency, flank pain, hematuria. Reported urine output has not declined. She denies any muscular cramps, otherwise reports she has lost weight. Weight has dropped from 208 to 176 with 208 in July and now 176. Poor appetite from nausea. Denies any chest pain or cardiovascular complaints such as palpitations. Her creatinine went up to 2.8 in the past. Her primary care has stopped her Lasix. States that she has not had any recent pain since yesterday. CT of the abdomen and pelvis was done this morning. Small volume ascites incidental. Nonacute findings, so unremarkable. OBJECTIVE: Vital Signs: On exam, temperature 97.8 degrees, pulse 78, respirations 20, blood pressure 140/52. Eyes: Pupils are equal, round. Lungs: Clear in all lung woodard. Cardiovascular exam: Regular rhythm and rate without murmur or S3. Abdomen: Soft. Do not appreciate tenderness. Positive bowel sounds. LABS: Reviewed her lab from the [facility]. Serum creatinine was 1.8 when she arrived and later went up to 2.1 yesterday. Came in with hyperkalemia and is down to 5.2. ASSESSMENT: 1. Dehydration secondary to protracted vomiting. Continue intravenous fluids. 2. 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 This is improved. 3. Urinary tract infection on antibiotics. 4. 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 5. Chronic kidney disease stage IV. 6. Hypertension. 7. Questionable chronic diastolic heart failure. 8. Abdominal pain. 9. Anemia of chronic inflammation versus kidney disease. Recently gallbladder removed. PLAN: She was scheduled I think to pursue esophagogastroduodenoscopy and colonoscopy. The patient received some calcium gluconate and bicarbonate and insulin D 50 yesterday with correction of the potassium. The etiology of the hyperkalemia could be a type 4 renal tubular acidosis as evidenced by patient having a low bicarbonate, no anion gap. We will see how we do with this. May need to get nephrology involved. She is scheduled to see Dr. Tavares. I will continue present orders. She is on ceftriaxone 1 g, received 1 dose and then she gets one every 24 hours. She is on Synthroid 100 mcg daily, Pepcid 20 mg a day, Bentyl 20 mg intramuscular every 8 hours as needed, Norvasc 5 mg a day and Zofran for nausea. cc: Alex Weathers MD
[2016-12-10] MEDS ORDERED: GOLYTELY PO ONE (17:03)
[2016-12-10] MEDS ORDERED: PHENERGAN IM PRN (21:47)
[2016-12-10] MEDS: ROCEPHIN 1 GM/NS 1 GM/50 ML IVPB IV SCH (21:53)
[2016-12-11] MEDS: SYNTHROID PO SCH (06:46)
[2016-12-11] MEDS: HUMALOG SUBQ SCH ×3 (07:56→17:33)
--- NOTE | 2016-12-11 09:56 | PROGRESS NOTE ---
DATE: 12/11/2016 SUBJECTIVE: Ms. Reese is a 76-year-old lady with a past medical history of hyperlipidemia. She is a patient of Dr. Crespo. She has a 3-week history of protracted nausea, vomiting, weight loss, hypertension, questionable history of diastolic heart failure. She underwent laparoscopic cholecystectomy performed per Dr. Roger Napier. She was prepped last night and got most of the prep down. It was rough. She had nausea, but expecting colonoscopy this morning. OBJECTIVE: Vital Signs: Temperature 98 degrees, pulse 75, respirations 14, blood pressure 130/55. CVP less than 6 cm. Lungs: Clear in all lung woodard. Cardiovascular: Regular rhythm and rate without murmur or S3. Urine Output: Good urine output. LABORATORY DATA: White count 5960, hematocrit 25, platelet count 205,000. Blood sugars are 88, 106, 110. ASSESSMENT AND PLAN: 1. She had a CT of the abdomen and pelvis, which was pretty unremarkable. Small volume ascites, incidental nonacute findings. So, the plan is for a colonoscopy today and an esophagogastroduodenoscopy. She did appear to have some dehydration and protracted vomiting when she came in and that is better. 2. Hyperkalemia, which is resolved. I suspect the possibility of renal tubular acidosis type 4. 3. Urinary tract infection, on antibiotics. 4. Diabetes mellitus type 2. Sugars under good control. 5. Chronic kidney disease, I think stage 4. 6. Hypertension. 7. Chronic diastolic heart failure. 8. Abdominal pain and nausea. 9. Anemia of chronic inflammation and chronic kidney disease. LABORATORY REVIEW: A review again of labs from yesterday: Creatinine 2.1, sodium 136, potassium 5.2, chloride 108, bicarbonate 17, BUN 61. Her CBC: White blood cell count 5960, hematocrit 25, platelet count 204,000, and MCV of 91. cc: Alex Weathers MD
[2016-12-11] MEDS: HEPARIN SUBQ SCH (10:15)
[2016-12-11] MEDS: PEPCID PO SCH (10:16)
[2016-12-11] MEDS: NORVASC PO SCH (12:10)
[2016-12-11] MEDS ORDERED: DIPRIVAN 1% 500 MG/50 ML BOTTLE ONE (12:54)
[2016-12-11] MEDS: SODIUM CHLORIDE 0.9% INJ SCH (14:42)
[2016-12-11] MEDS: PROTONIX IV SCH (14:42)
--- NOTE | 2016-12-11 16:40 | CONSULTATION ---
DATE OF CONSULTATION: 12/11/2016 REASON FOR CONSULTATION: Three week history of nausea, vomiting and weight loss. HISTORY OF PRESENT ILLNESS: This is a pleasant lady with past medical history of laparoscopic cholecystectomy on 11/15. Since that time she has been having intermittent lower abdominal cramps and nausea and postprandial vomiting. She never had any hematemesis and no melena. She actually is supposed to have both upper and lower endoscopy by me as an outpatient but because of the continued abdominal problems she was admitted. She had a CT scan done 10 days ago and ultrasound which was negative. REVIEW OF SYSTEMS: Negative other than HPI. ALLERGIES: Iodine, Zofran, shellfish, Levaquin. SURGICAL: She had lap cholecystectomy, hysterectomy and tonsillectomy. SOCIAL HISTORY: Does not smoke. Does not drink. Does not use drugs. FAMILY HISTORY: Positive for hypertension, diabetes, heart disease. HOME MEDICATION: Norvasc 5 daily, Synthroid 100 mcg daily, 20 daily. LABORATORY WORK: Urinalysis shows white cells and 4+ bacteria and nitrates positive. Creatinine 1.8. LFTs are normal. Amylase and lipase normal. Hemoglobin and hematocrit 10 and 32 respectively. PHYSICAL EXAMINATION: Blood pressure 120/60, heart rate 88, respirations 15, temp of 97.9 degrees.General: An elderly lady who is by the time I have seen in no acute distress. While talking we just do an upper GI endoscopy she said while she is here she would rather get the complete exam. HEENT: No scleral icterus. Mild conjunctival pallor present. Neck: Supple. Trachea in the midline. Heart: Normal first and second heart sounds. Lungs: Clear. Abdomen: Recent laparoscopic scars well healed. Bowel sounds present and normal. Extremities: Unremarkable. Laboratory data as above. Neurological: No focal deficit. ASSESSMENT AND PLAN: 1. Dehydration secondary to nausea and vomiting. 2. 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 3. UTI. 4. Type 2 diabetes. 5. Chronic kidney disease. 6. Hypertension. 7. Intermittent abdominal pain. Possible colitis. 8. Anemia. RECOMMENDATION: 1. We will hydrate the patient. We will do upper and lower endoscopy. Preparation of the endoscopy may be difficult but she wants to do it. Encouraged her to take some fluids as well. 2. Hyperkalemia is being investigated. 3. Deep vein thrombosis prophylaxis. 4. Abdominal pain. Should have some answers from the endoscopy and Dr. Pagan will be taking care of her in the morning. cc: Kaycee Tavares MD
--- NOTE | 2016-12-11 17:03 | CONSULTATION ---
DATE OF CONSULTATION: 12/11/2016 REASON FOR CONSULTATION: Three-week history of nausea, vomiting, and weight loss. HISTORY OF PRESENT ILLNESS: This is a 76-year-old lady with past history of INCOMPLETE REPORT - DICTATION ENDS HERE cc: Kaycee Tavares MD
[2016-12-11] MEDS: MIRALAX PO SCH (21:48)
[2016-12-11] MEDS: ICAR-C PO SCH (21:48)
[2016-12-11] MEDS: ANALPRAM HC CREAM PR SCH (21:48)
[2016-12-11] MEDS: ROCEPHIN 1 GM/NS 1 GM/50 ML IVPB IV SCH (21:48)
[2016-12-12] MEDS: HUMALOG SUBQ SCH ×5 (06:35→21:13)
[2016-12-12] MEDS: SYNTHROID PO SCH (06:37)
[2016-12-12 08:22] LABS: MANUAL DIFF NEEDED? NO
[2016-12-12 08:35] LABS: BASO% 0.5 % (0.0-0.8); HEMATOCRIT 26.5 % (37.0-47.0); HEMOGLOBIN 8.3 g/dL (12.0-16.0); LYMPH# 0.92 X1000 (1.2-3.4); LYMPH% 24.7 % (20.5-51.1); MCH 28.9 PG (27-31); MCHC 31.3 g/dL (33-37); MCV 92.3 FL (81-99); MONO% 10.8 % (1.7-9.3); PLT 214 X1000 (130-400); RBC 2.87 XMIL (4.2-5.4)
--- NOTE | 2016-12-12 08:55 | PROGRESS NOTE ---
DATE: 12/12/2016 SUBJECTIVE: Ms. Reese is at eating breakfast. Feels good. No nausea. Feels much better. She ate supper last night and it stayed down well. She underwent colonoscopy and EGD yesterday, and this was because of her nausea, vomiting, weight loss. Abdominal and pelvic CT was unremarkable. They found apparently gastric ulcer, and we have her on proton pump inhibitor. OBJECTIVE: Vital Signs: On exam, temperature 98.4 degrees, pulse 67, respirations 16, blood pressure 127/95. HEENT: Pupils are equal, round. Lungs: Clear in all lung [place]. Cardiovascular: Regular rhythm and rate without murmur or S3. Abdomen: Soft. : Urine output 800 mL. LAB: White count 3720, hematocrit 26, platelet count 214,000. Blood sugar is 105, 118, 106. ASSESSMENT AND PLAN: 1. Abdominal pain and nausea, better. Gastric ulcer. Continue her proton pump inhibitor. Right now she is on Protonix 40 mg intravenous every 12 hours. 2. Anemia. Hematocrit is stable at 26, hemoglobin 8.3. No sign of active bleeding at this point. Her diet is regular diet. If she tolerates that today and blood counts remain stable, then I think she can go home. We will discuss with Dr. Tavares. cc: Alex Weathers MD
[2016-12-12] MEDS: SODIUM CHLORIDE 0.9% INJ SCH ×2 (09:05→21:17)
[2016-12-12] MEDS: PROTONIX IV SCH ×2 (09:05→21:17)
[2016-12-12] MEDS: NORVASC PO SCH (09:06)
[2016-12-12] MEDS: CENTRUM SILVER PO SCH (09:06)
[2016-12-12] MEDS: ICAR-C PO SCH ×2 (09:07→21:12)
[2016-12-12] MEDS: MIRALAX PO SCH ×2 (09:08→21:12)
[2016-12-12] MEDS: ANALPRAM HC CREAM PR SCH ×2 (09:08→21:13)
--- NOTE | 2016-12-12 11:48 | PROGRESS NOTE ---
DATE: 12/12/2016 SUBJECTIVE: Patient currently is sitting in a chair. Her daughter is at the bedside. She denies any new complaints. She is feeling better. Her hemoglobin and hematocrit is improving. She denies any nausea or vomiting, vomiting blood or passing blood in the stools. She denies any fevers, rigors, chills. OBJECTIVE: Temperature 98.4, pulse rate of 67, respiratory rate 16, blood pressure 127/95, saturating 100% room air.General Appearance: This is a moderately nourished sitting in chair, in no acute distress. HEENT: Mild pallor. No icterus. Neck: Supple. Abdomen: Soft, nontender, nondistended. Mild obese. No guarding or rebound. Extremities: No cyanosis, clubbing. Bilateral lower extremity edema noted 1+. Neurologic: She is alert, awake, oriented x3. LABS: Hemoglobin and hematocrit is 8.3, 26.5, white count 3.7, platelet count of 214,000. MCV of 92.3, blood sugar of 106. Urinalysis positive white cells. Her urine culture showed E. coli thayer sensitive. IMPRESSION AND PLAN: 1. Abdominal pain in the right lower quadrant, left lower quadrant. Likely because of constipation. We will continue on MiraLAX twice daily and she can use Dulcolax suppository as needed. 2. Diverticulosis of the left colon moderately severe. She will avoid corn, nuts, and seeds in diet. Increase fiber intake to 25-30 g 24 hours and avoid constipation. 3. Duodenitis and duodenal ulcer. Continue Protonix twice daily for 3 months. We will repeat EGD in 3 months. After she runs out of Protonix she will be on Zantac 150 mg p.o. b.i.d. 4. Anemia. Will continue Iron C b.i.d. and multivitamin once daily. 5. She will continue on GI soft diet and slowly advance to regular diet. 6. Reflux disease. She will continue to avoid excessive tea, coffee, soda, tomatoes, onions, spicy foods. 7. The patient will likely be discharged tomorrow if okay with the primary care team. The patient will continue to follow with a primary care doctor for reviewing her blood counts and she will follow with us in 3 months for repeat EGD. The above findings discussed with the patient and family at bedside. All questions answered. cc: MD Alex Jean MD Akram Haggag, MD
--- NOTE | 2016-12-12 13:28 | OPERATIVE NOTE ---
PROCEDURE DATE: 12/11/2016 ADMITTING PHYSICIAN: Dr. Weathers. PRIMARY: Dr. Crespo. TITLE OF PROCEDURE: 1. Esophagogastroduodenoscopy with gastric biopsy. 2. Ileal colostomy. PRE-OPERATIVE DIAGNOSES: 1.History of abdominal pain in the periumbilical region, left lower quadrant, right lower quadrant going on for the last month and a half. Had worsened over the last 2 days. Presented to the ER. #2 anemia. Admission hematocrit of 32 going down to 25. #3 she has a recent cholecystectomy and had her gallbladder removal on 2016 at [facility]. #4 patient was told that she had ascites at that time during the gallbladder removal and they had a liver biopsy done which was unremarkable. She is undergoing workup for the ascites of unknown origin with the primary care doctor. Next is nausea and vomiting. POSTOPERATIVE DIAGNOSES: 1. Normal esophagus entirely. 2. Z line noted at 36 cm. 3. Evidence of hiatal hernia sliding type 3 cm. 4. Gastritis of the body and antrum status post biopsy. 5. Duodenitis visible. 6. Duodenal ulcer in the AP region of the bulb, nonbleeding, superficial. 7. Normal 2nd portion of the duodenum. 8. Normal terminal ileum. 9. Stool in the colon. 10. Evidence of mild erythema in the ascending colon. 11. Diverticulosis noted in the sigmoid and descending colon Moderately severe. Internal hemorrhoids grade 2 noted on retroflexion. 12. Stool was collected and sent for microbiology studies. ESTIMATED BLOOD LOSS: Minimal. COMPLICATIONS: None. ANESTHESIA: Monitored anesthesia care. SPECIMEN: 1. Gastric random biopsy. 2. Stool samples. PROCEDURE: After informed consent, the patient explained the risks, benefits, indications, alternatives, the patient for EGD and colonoscopy. The patient was brought to the OR. She was turned to the left lateral position. A bite block was placed. After adequate monitored anesthesia care the upper scope was gently induced through the oral vestibule all the way to the 2nd portion of the duodenum. Esophagus normal in the entire length. Z-line was at 36 cm. There is evidence of hiatal hernia measuring 3 cm. The scope was in the stomach. Evidence of erythema in the body of the stomach and antrum. This was biopsied which revealed normal fundus, cardia, incisura. There was evidence of duodenitis in the entire duodenal bulb of erosive type. There was evidence of a superficial ulcer measuring about 7 mm at the apex in bulb. There was no visible vessel. The second portion appeared normal. There was no evidence of any fresh or old blood in the entire EGD. The scope withdrawn. The patient was turned around. Rectal exam showed normal tone, no masses, no blood on the examining finger. The colonoscope was gently introduced through the anal orifice, traversed all the way to the terminal ileum. The terminal ileum was normal. There was no evidence of any ulcerations in the terminal ileum. The colonic mucosa had mild erythema in the ascending colon. I thought it was likely scope trauma. The rest of the colonic mucosa appeared normal. There was evidence of moderately severe diverticulosis in the descending and sigmoid colon. There was evidence of thick stool throughout the colon which was lavaged. Retroflexion in the rectum revealed internal hemorrhoids grade 2. There was no evidence of any fresh or old blood in the entire colon. The air was withdrawn. The patient tolerated the procedure well and I discussed the findings with the patient's daughter and all questions answered. RECOMMENDATIONS: 1. The patient will be on Protonix twice daily for 3 months. 2. The patient will repeat EGD in 3 months to document healing of the ulcers. 3. The patient will return to clinic in 1 month to follow the gastric biopsies. 4. The patient will be on MiraLAX 17 g p.o. b.i.d. for treatment of constipation. 5. The patient will be on a high fiber diet and avoid corn, nuts, and seeds in diet because of severe diverticulosis. 6. Start on Proctosol HC 2.5% cream twice daily per rectally for internal hemorrhoids. 7. Will start on Iron C b.i.d. for 3 months. We will start on multivitamins for 3 months. 8. Will continue working up on ascites of unclear origin with the primary care team. We will try to obtain the liver biopsy results and the op notes from her surgeon at [facility]. 9. I will also type and screen and transfuse 2 units as hematocrit was low at 25 %. 10. We will hold her heparin for now as patient has duodenitis and duodenal ulcer. 11. Further recommendations depending on clinical course. cc: MD Emory Reaves MD Akram Haggag, MD Manish Arora, MD MTDD
[2016-12-12] MEDS: ROCEPHIN 1 GM/NS 1 GM/50 ML IVPB IV SCH (21:11)
[2016-12-13] MEDS: SYNTHROID PO SCH ×2 (05:57→06:44)
[2016-12-13] MEDS: HUMALOG SUBQ SCH ×2 (06:44→13:07)
--- NOTE | 2016-12-13 07:25 | EKG Report ---
Test Performed on : 12/09/2016 9:35:44 PM Test Reason : No Order in [employer] Blood Pressure : / mmHG Vent. Rate : 117 BPM Atrial Rate : 117 BPM P-R Int : 156 ms QRS Dur : 072 ms QT Int : 316 ms P-R-T Axes : 029 -35 037 degrees QTc Int : 440 ms Sinus tachycardia. with premature supraventricular complexes. Left axis deviation Abnormal ECG When compared with ECG of 19-OCT-2016 12:44, premature supraventricular complexes. are now present Vent. rate has increased BY 48 BPM Unconfirmed Result
[2016-12-13] MEDS: PROTONIX IV SCH (07:45)
[2016-12-13] MEDS: SODIUM CHLORIDE 0.9% INJ SCH (07:45)
[2016-12-13 07:46] VITALS: BP 137/48
[2016-12-13] MEDS: ICAR-C PO SCH (08:07)
[2016-12-13] MEDS: NORVASC PO SCH (08:07)
[2016-12-13] MEDS: CENTRUM SILVER PO SCH (08:07)
[2016-12-13] MEDS: MIRALAX PO SCH (08:07)
[2016-12-13] MEDS: ANALPRAM HC CREAM PR SCH (08:08)
--- NOTE | 2016-12-13 15:15 | DISCHARGE SUMMARY ---
ADMISSION DATE: 12/09/2016 DISCHARGE DATE: 12/13/2016 HOSPITAL COURSE: This is a 76-year-old who was admitted on 12/09/2016 and discharged on 12/13/2016. She has a week history of protracted history of vomiting and weight loss when she came in. She was not able to eat much and a lot of abdominal discomfort. Dr. Tavares saw her. We did an abdominal CT of the pelvis and it was okay. I found some ulcers on EGD, and had put her on a proton pump inhibitor, and she has been able to eat and is tolerating food well. Hemoglobin and hematocrit remained stable. She had a little dehydration when she came in. We gave her some fluids and that seemed to improve. We will let her go home on 12/13/2016. DISCHARGE MEDICATIONS: She will continue taking her MiraLAX 17 g b.i.d., Protonix 40 mg she will take twice a day, Synthroid 100 mcg daily, I-car 1 b.i.d., Bentyl 20 mg a day, we have stopped that and stopped the Rocephin. She is on Norvasc 5 mg a day. FOLLOWUP: She will follow up with her primary care and also follow up with Dr. Tavares or Dr. Pagan. cc: Alex Weathers MD
== END 2016-12-13 14:02 ==
LOC: ED 18:26 → 4N 23:52 → SUATTDRO 23:52
PROVIDERS: ATTEND Emergency Medicine